=== PATIENT | male | born 1960 | race Caucasian/White ===

== ENCOUNTER 2023-02-23 06:56 | Outpatient (OUT) | payer OTHER, SELFPAY ==
[2023-02-23 07:22] LABS: Basophils Absolute Auto 0.1 10^3/uL (0.0-0.1); Basophils Percent Auto 1.3 % (0.2-2.0); Eosinophils Absolute Auto 0.5 10^3/uL (0.0-0.7); Eosinophils Percent Auto 7.2 % (0.9-7.0); Hematocrit 42.1 % (42.0-54.0); Hemoglobin 14.5 g/dL (14.0-18.0); Immature Granulocytes Abs Auto 0.03 10^3/uL (0.00-0.03); Immature Granulocytes Pct Auto 0.4 % (0.0-0.5); Lymphocytes Absolute Auto 1.7 10^3/uL (1.2-3.8); Lymphocytes Percent Auto 24.6 % (20.5-60.0); Mean Corpuscular HGB Conc 34.4 g/dL (29.9-35.2); Mean Corpuscular Hemoglobin 32.4 pg (25.9-34.0); Mean Platelet Volume 9.6 fL (9.5-13.5); Monocytes Absolute Auto 0.5 10^3/uL (0.3-0.8); Monocytes Percent Auto 6.6 % (1.7-12.0); Neutrophils Absolute Auto 4.2 10^3/uL (1.4-6.5); Neutrophils Percent Auto 59.9 % (43.0-75.0); Platelet Count 188 10^3/uL (150-450); Red Blood Count 4.48 10^6/uL (4.70-6.10); Red Cell Distribution Width 12.7 % (11.0-15.0)
[2023-02-23 07:30] LABS: Estimated Average Glucose 134 mg/dL; Glycohemoglobin A1C 6.3 % (4.5-6.2)
[2023-02-23 08:16] LABS: Alanine Aminotransferase 36 U/L (16-63); Albumin Globulin Ratio 1.1; Albumin Level 3.6 g/dL (3.4-5.0); Alkaline Phosphatase 66 U/L (46-116); Aspartate Amino Transferase 21 U/L (15-37); BUN Creatinine Ratio 13.4; Bilirubin Total 0.7 mg/dL (0.2-1.0); Calcium 8.8 mg/dL (8.5-10.1); Carbon Dioxide 29.9 mmol/L (21.0-32.0); Chloride 104 mmol/L (98-107); Chol HDL Ratio 4.9; Cholesterol 187 mg/dL (<=200); Estimated GFR (African America >60 (>=60); Estimated GFR (Non-African Ame >60 (>=60); Free T3 2.83 pg/mL (2.18-3.98); Globulin 3.4 g/dL; Glucose 156 mg/dL (74-106); HDL Cholesterol 38 mg/dL (40-60); Potassium 4.9 mmol/L (3.5-5.1); Sodium 141 mmol/L (136-145); Thyroid Stimulating Hormone 1.166 uIU/mL (0.358-3.740); Triglycerides 157 mg/dL (<=150); VLDL CHOLESTEROL 31.4 mg/dL
[2023-02-23 08:21] LABS: Prostate Specific Antigen Scrn 0.65 ng/mL (<=4.00)
== END 2023-02-23 06:57 | disposition home or self-care (01) ==
LOC: LAB 07:00
PROVIDERS: PCP Family Medicine; Visit Provider Family Medicine
DX: E78.01 Familial hypercholesterolemia (principal); Z79.899 Other long term (current) drug therapy; R53.83 Other fatigue; Z00.00 Encounter for general adult medical examination without abnormal findings; Z12.5 Encounter for screening for malignant neoplasm of prostate
CPT/HCPCS: 36415; 80053; 80061; 83036; 84436; 84443; 84481; 85025; G0103

== ENCOUNTER 2024-10-24 07:07 | Outpatient (OUT) | payer SELFPAY ==
--- OUTSIDE RECORDS SUMMARY | 2024-06-15 09:51 | XMS_ITS ---
Author Organization [facility] in [place] Address [address] [place] [address] Care Team Providers Care Brass Pickler Name Role Phone Selam Marcos Primary Care Provider [phone] REASON FOR VISIT rf lisinopril Medications Medication SIG (Take, Route, Fr equency, Duration) Notes Start Date End Date Status Lisinopril 10 MG TAKE 1 TABLET BY MADHURI TH EVERY DAY for 90 Active Encounters Encounter Location Date Provider Diagnosis [facility] [address] [place] [address] 06/15/2024 Marcos Selam Plan Of Treatment Medication Medication Name Sig Start Date Stop Date Notes Lisinopril 10 MG TAKE 1 TABLET BY MOUTH EVERY DAY for 90 Progress Notes * Nik PETE ADOB:1960 (63 yo M)Acc No.[id number]:06/15/2024 Patient: Nik SPARROW :1960 A ge:63 Y S ex:Male Address:[address] [place] [id number] * Refills Refill Lisinopril Tablet, 10 MG, 90 Tablet, TAKE 1 TABLET BY MOUTH EVERY DAY, 90, Refills=3 * true * Date: Generated for Alvarez riggs/Tyler/eTransmitting on: 0 10/24/2024 07:11 AM EDT
--- OUTSIDE RECORDS SUMMARY | 2024-07-04 10:00 | XMS_ITS | Encounter Summary ---
Author Name [facility] [place] [facility] [place] Address [address] [place] [address] Care Team Providers Care Plastic Parts Fabricator Trimmer Name Role Phone DIMA CEBALLOS Primary Care Provider Unavailabl e Insurance Providers: All historical and current Section Date Range: From patient's date of to the date document was created. This section includes the names of all active insurance providers for the patient. Insurance Provider Type of Coverage Plan Name Start of Policy Coverage End of Policy Coverage Group Number Member ID Insurance Provider's Telephone Number Policy Welch's Name Patient's Relationship to Policy Welch ANTHEM PREFERRED PROVIDER ORGANIZAT ION (PPO) [employer] Mar 16, 2023 [id number] NEFTALI MORENO PATIENT PROACT RX PRESCRIPT ION KALMB ACH FEEDS Mar 16, 2023 ARIS [id number] [phone] NEFTALI MORENO PATIENT Selected Encounter This section includes the information on record at [place] for the Encounter. Date/Time Encounter Type Encounter Description Reason Provider Source Jul 04, 2024 02:00 PM OFFICE O/P NEW MOD 45 MIN PRIMARY CARE/MEDICINE ICD-10-CM M79.673 Pain in unspecified foot DIMA CEBALLOS Jeanette Encounter Template Text not used by [place] Assessments - Encounter Diagnoses This section includes the primary and secondary diagnoses documented for the Encounter. Date/Time Primary/Secondary Diagnosis Diagnosis Name Provider Source Jul 04, 2024 04:13 PM PRIMARY Pain in unspecified foot [facility] Jul 04, 2024 04:13 PM SECONDARY Contact with and exposure to other hazardous substances [facility] Jul 04, 2024 04:13 PM SECONDARY Sensorineural hearing loss, bilateral [facility] Jul 04, 2024 04:13 PM SECONDARY Tinnitus, bilateral DIMA CEBALLOS CBO [facility] Plan of Treatment: Future Appointments (+ 6 months) and Future Tests (+/- 45 days) The Plan of Treatment section includes future care activities for the patient [facility] [place] [facility] This section includes future appointments and future orders which are active, pending or scheduled. Future Appointments This section includes appointments that were scheduled to occur 6 months from the date of the Encounter, up to a maximum of 20 appointments. The data comes from all [place] treatment facilities. Appointment Date/Time Appointment Type Appointme nt Facility Name July 28, 2024 02:30 PM AMBULATORY - SURGERY [facility] August 09, 2024 02:30 PM AMBULATORY - SURGERY [facility] Active, Pending, and Scheduled Orders This section includes a listing of several types of active, pending, and scheduled orders, including clinic medications orders, diagnostic test orders, procedure orders and consult orders; where the start date of the order is 45 days before the date of the Encounter or 45 days after the date of theEncounter. The data comes from all [place] treatment facilities. Test Date/Time Test Type Test Details Facility Name Jul 04, 2024 03:08 PM Consult Order S PODIATRY OUTPT Cons Bundle Tier And Labeler's Choice [facility] Social History: Smoking Status (Most current) and Tobacco Use (All prior to encounter date) This section includes the most current, and the historical, smoking and tobacco- related health factors from the [place] facility where the Encounter took place. Current Smoking Status This section includes the most current smoking, or tobacco-related health factor, from the [place] facility where the Encounter took place. Date/Time Current Smoking Status Kamar valdez Jul 04, 2024 02:00 PM VA-TOBACCO USE FORMER CIGARETTES [facility] Tobacco Use History This section includes a history of the smoking, or tobacco-related health factors, that were collected on or before the date of the Encounter. The data comes from the [place] facility where the Encounter took place. Date/Time Smoking Status/Tobacco Use Comment F acility Jul 04, 2024 02:00 PM VA-TOBACCO USE FORMER CIGARETTES [facility] Encounter Notes: All associated encounter notes This section contains the clinical notes associated to the Encounter. Date/Time Encounter Note(s) Provider Source Jul 04, 2024 03:16 PM NURSING MEDICATION MGT NOTE: LOCAL TITLE: MEDICATION ADMINISTRATION NOTE (T) STANDARD TITLE: NURSING MEDICATION MGT NOTE DATE OF NOTE: JUL 04, 2024@15:16 ENTRY DATE: JUL 04, 2024@15:17:08 AUTHOR: DAKSHA FRIEND EXP COSIGNER: URGENCY: STATUS: COMPLETED COVID-19 Vaccine [facility] [employer] Patient received prior dose of [employer] COVID-19 vaccine. Documented: COVID-19 (ADP), VECTOR-NR, RS-AD26, PF, 0.5 ML Historical Date Administered: Sep 21, 2020 Series: Series 1 Drama Therapist: ADP Lot: [id number] Exp Date: Unknown Outside Location: [facility] Information Source: FROM PATIENT'S WRITTEN RECORD Comment: Covid-19 Vaccination Record Card /jumana/ DAKSHA FRIEND LICENSED PRACTICAL NURSE Signed: 07/04/2024 15:23 DAKSHA FRIEND [facility] Jul 04, 2024 02:36 PM INTERNAL MEDICINE OUTPATIENT NOTE: LOCAL TITLE: PRIMARY CARE OUTPATIENT NOTE (T) STANDARD TITLE: INTERNAL MEDICINE OUTPATIENT NOTE DATE OF NOTE: JUL 04, 2024@14:36 ENTRY DATE: JUL 04, 2024@14:36:24 AUTHOR: DIMA CEBALLOS EXP COSIGNER: URGENCY: STATUS: COMPLETED In-person Note 63yo Reason for Visit: 63 y/o male here to establish with the [place]. States he is [place] for hearing loss. has some other things he would like to discuss. Sees Dr. Doss as PCP. PAST MEDICAL HISTORY: Medical: hearing loss, tinnitus, HTN, foot and knee pain. prediabetes. Surgical: wisdom teeth. Psychiatric: denies FAMILY HISTORY: mother age 86 - old age father age 72 - CVA (intraoperative) and 10yr later. Cancers: sister - unknown Diabetes: denies Hypertension: denies Coronary Disease: denies Stroke: father. SOCIAL HISTORY: History: [place] [phone]. Occupational/Education: parts counter sales. Works at [email or web address] in [place]. High School Diploma. Tobacco History / Current Use: reformed smoker quit > 15 years ago. smoked maybe 2 pks per week. smoked about 15 years. Alcohol History / Current Use: occas ETOH use. Denies Marijuana use. Illicit Substance Use History / Current Use: Denies Family/Living Situation: . 3 children. Lives with his ex- and oldest son (age 43). REVIEW OF SYSTEMS: foot pain and knee pain. hearing loss ringing in ears. nocturia x3 sees dermatology annually d/t multiple freckles PATIENT ALLERGIES DETAILED ALLERGIES/ADVERSE REACTIONS No Known Allergies AMRS - MEDS (REC SUCCINCT) Active and Recently Inpatient, Outpatient and Clinic Medications (including Supplies): No Medications Found PHYSICAL EXAM: Vital Signs: T: P: 72 (07/04/2024 14:02) R: 16 (07/04/2024 14:02) BP: 118/68 (07/04/2024 14:02) Pain: 5 (07/04/2024 14:02) Height: 71 in [180.3 cm] (07/04/2024 14:02) Weight: 223.1 lb [101.20 kg] (07/04/2024 14:02) Pulse Ox: HEENT: normocephalic, atraumatic. EOMI. TYREE. EAC's patent. TM's unremarkable. Oral mucosa pink and moist. Tongue midline without fasciculations. Throat without erythema or exudate. No oral lesions noted. NECK supple no bruits. LUNGS: clear to auscultation HEART: RRR, No murmurs. No S3, S4, rubs, clicks EXTREMITIES: Pulses intact. No cyanosis. No edema. NEURO: Grossly intact. No motor or sensory deficits noted. SKIN: No lesions noted. ASSESSMENT/PLAN: hearing loss and tinnitus - discussed audiology with pt. He denies needs at present. given contact information if he wishes to scheduled foot pain - consult podiatry. Pt requests to see optometry. plan f/u annually and prn. labs prior. call if questions or needs arise. HEALTH MAINTENANCE/CLINICAL REMINDERS: Clinical Reminders Activity Avg Risk Colorectal Cancer Screen: AVERAGE RISK colorectal cancer screening is due based on information available to this clinical reminder CRC screen completed elsewhere and waiting for results. Results expected: Colonoscopy Comment: [facility] Toxic Exposure Screening Follow-Up: Exposure Concern(s): 07/04/2024 Other Environmental Concerns - Toxic Exposure Concern Asbestos Exposure - Toxic Exposure Concern Other exposures: Jet engine loud noise exposure Follow-up Question(s): 07/04/2024 No Questions - Toxic Exposure Concern declines further assistance at this time. MEDICATION RECONCILIATION Medication Reconciliation report reviewed and discussed with patient/caregiver. VA prescription medications, non-VA prescription medications, OTC and herbal medications reviewed: Patient/caregiver verifies that the list is complete and accurate and voices understanding. FOLLOW-UP: recheck annually and prn. I am the Attending Physician. TOTAL TIME SPENT: Spent 46 minutes in care of this patient today including review of records, exam, and placing orders. /jumana/ DIMA CEBALLOS PHYSICIAN Signed: 07/04/2024 16:13 [facility] CEBALLOS [facility] Jul 04, 2024 02:01 PM PRIMARY CARE NURSI BRANDON NOTE: LOCAL TITLE: OUTPATIENT NURSING INTAKE NOTE (T) STANDARD TITLE: PRIMARY CARE NURSING NOTE DATE OF NOTE: JUL 04, 2024@14:01 ENTRY DATE: JUL 04, 2024@14:01:11 AUTHOR: DAKSHA FRIEND COSIGNER: URGENCY: STATUS: COMPLETED Hemoglobin A1C Results: No Hemoglobin A1C Results Review Allergies Allergies reviewed and updated per protocol. ALLERGIES/ADVERSE REACTIONS No Allergy Assessment Pulse reading was documented at this visit. 72 Respiration reading was documented at this visit. 16 New blood pressure reading was documented at this visit. 118/68 Pain scale was documented at this visit. 5 A new weight was documented at this visit. 223.1 lb (101.4 kg) A new height was documented at this visit. 71 in [180.3 cm) Click here to document a new pulse ox. 97 Have you fallen in the last 30 days? NO MEDICATION LIST REVIEW REPORT Patient states not taking any OTC/Herbals at this visit. 1. Has the patient been feeling sad or distressed? No 2. Has the patient been having personal or family problems? No 3. Has the patient been experiencing worry and/or stress? Yes. Name of PCP notified for follow-up/disposition: Dr. Ceballos 4. Has the patient been having problems with drugs and/or alcohol? No 5. Crisis Line pocket card was provided to patient. Yes Whole Health MAP ('s [place], Aspiration and Purpose) What matters most to you? Comment: My health Clinical Reminders Activity Advance Directive Education Screen: Patient received information regarding Advance Directives: Yes - Patient has been given information/education regarding Advance Directives. Patient advised to follow up with Social Work Service. Level of Understanding: Good Alcohol Use Screen (AUDIT-C): Alcohol Screen: SCREEN FOR ALCOHOL (AUDIT-C) An alcohol screening test (AUDIT-C) was negative (score=3). 1. How often did you have a drink containing alcohol in the past year? Consider a drink to be a 12 ounce can or bottle of regular beer, 8 ounces of malt liquor, a 5 ounce glass of table wine, or a 1.5 ounce shot of liquor (like scotch, gin, or vodka). Two to four times a month 2. How many drinks containing alcohol did you have on a typical day when you were drinking in the past year? Three or four drinks 3. How often did you have six or more drinks on one occasion in the past year? Never BMI Screening: At this visit, the health risks of obesity were reviewed and discussed with the patient, and the benefits of a weight management treatment program, such as [facility]! was discussed and offered to the patient. Patient declines referral. After discussing the health risks of obesity and offering a referral to [facility] or another weight loss program outside the [facility], the patient DECLINES REFERRAL to [facility] or other weight loss program at this time. COVID-19 Immunization: Refused Pfizer Monovalent COVID-19 vaccine Immunization: COVID-19 (PFIZER), MRNA, LNP-S, PF, BENA-SUCROSE, 30 MCG/0.3 ML (AGES 12+ YEARS) Refusal Reason: PATIENT DECISION Patient refuses all immunization(s) in the COVID-19 group Date Documented: 07/04/24 14:16 Depression Screening: Perform PHQ-2 A PHQ-2 screen was performed. The score was 0 which is a negative screen for depression. Over the past two weeks, how often have you been bothered by the following problems? 1. Little interest or pleasure in doing things Not at all 2. Feeling down, depressed, or hopeless Not at all Herpes Zoster (Shingles) Vaccine: The patient declines to receive the recommended dose of zoster (shingles) vaccine. Immunization: ZOSTER RECOMBINANT Refusal Reason: PATIENT DECISION Patient refuses all immunization(s) in the ZOSTER group Date Documented: 07/04/24 14:17 Homelessness/Food Insecurity Screen: In the past 2 months, have you been living in stable housing that you own, rent, or stay in as part of a household? Yes - Living in stable housing. Are you worried or concerned that in the next 2 months you may NOT have stable housing that you own, rent, or stay in as part of a household? No - Not worried about housing near future The reports the following: Within the past 12 months, you worried whether your food would run out before you got money to buy more. Never true Within the past 12 months, the food you bought just didn't last and you didn't have money to get more. Never true Influenza Immunization: Deferral / Refusal The patient declines to receive the recommended dose of seasonal influenza vaccine. Immunization: INFLUENZA, UNSPECIFIED FORMULATION Refusal Reason: PATIENT DECISION Patient refuses all immunization(s) in the FLU group Date Documented: 07/04/24 14:18 Learning Assessment: LEARNING NEEDS ASSESSMENT: I. Learning Preference: Written (in [place] de[place]ni' language) II. Barriers to Learning: No Barriers to Learning III. Social Influences Related to Educational Needs: No social barriers to learning IV. Readiness to Learn: Patient Appears ready to learn. MST Screening: Patient denies experiencing sexual trauma (MST). PTSD Screening: PC-PTSD-5 A PTSD screening test (PC-PTSD-5) was negative (score=0). IN THE PAST MONTH, have you ever had any experience that was so frightening, horrible or traumatic. For example: A serious accident or fire a physical or sexual assault or abuse An earthquake or flood A war Seeing someone be killed or seriously injured Having a loved one through homicide or suicide 1. Have you ever experienced this kind of event? NO 2. Had nightmares about the event(s) or thought about the event(s) when you did not want to? Response not required due to responses to other questions. 3. Tried hard not to think about the event(s) or went out of your way to avoid situations that reminded you of the event(s)? Response not required due to responses to other questions. 4. Been constantly on guard, watchful, or easily startled? Response not required due to responses to other questions. 5. [place] numb or detached from people, activities, or your surroundings? Response not required due to responses to other questions. 6. [place] guilty or unable to stop blaming yourself or others for the event(s) or any problems the event(s) may have caused? Response not required due to responses to other questions. Suicide Screen: C-SSRS Screening [place] Suicide Severity Rating Scale (C-SSRS) screener 1. Over the past month, have you wished you were or wished you could go to sleep and not wake up? No 2. Over the past month, have you had any actual thoughts of killing yourself? No 3. Over the past month, have you been thinking about how you might do this? Response not required due to responses to other questions. 4. Over the past month, have you had these thoughts and had some intention of acting on them? Response not required due to responses to other questions. 5. Over the past month, have you started to work out or worked out the details of how to kill yourself? Response not required due to responses to other questions. 6. If yes, at any time in the past month did you intend to carry out this plan? Response not required due to responses to other questions. 7. In your lifetime, have you ever done anything, started to do anything, or prepared to do anything to end your life (for example, collected pills, obtained a gun, gave away valuables, went to the roof but didn't jump)? No 8. If YES, was this within the past 3 months? Response not required due to responses to other questions. Tdap Immunization: The patient declines to receive the recommended dose of Tdap vaccine. Immunization: TDAP Refusal Reason: PATIENT DECISION Patient refuses all immunization(s) in the TDAP group Date Documented: 07/04/24 14:20 Tobacco Use Screening: The patient is a former cigarette smoker. Quit smoking GREATER THAN OR EQUAL to 15 years. The patient has never used other types of tobacco. Toxic Exposure Screening: The /caregiver was asked if they believe the [place] experienced any toxic exposure(s), such as Airborne Hazards and Open Burn [place], [place] War related exposures, Agent [place], Radiation, contaminated water at [place] or other such exposures, while serving in the Armed Forces. [place]/caregiver believes the [place] was exposed to the following while serving in the Armed Forces: Asbestos: [place]/caregiver was made aware of educational resources and printed information was offered and provided if desired. Other exposures: Comment: Jet engine loud noise exposure /caregiver was made aware of educational resources and printed information was offered and provided if desired. No questions at this time [place]/caregiver was informed of local points of contact. Contact information for local resources: Presumptive Condition(s): Ramila Jenkins, Environmental Health Clinician, ext. [phone] Benefits/Claims: Angelika Erickson, Legal Admin Specialist, ext. [phone] [facility] Enrollment: Nikhil Verdin, Tissue Technician. ext. [phone] Registry: Ramila Jenkins, Environmental Health Clinician, ext. [phone] Toxic Exposure Screening Follow-Up reminder is needed. Name of person notified: Dr. Ceballos /jumana/ DAKSHA FRIEND LICENSED PRACTICAL NURSE Signed: 07/04/2024 14:26 DAKSHA FRIEND [facility]
--- OUTSIDE RECORDS SUMMARY | 2024-07-28 09:15 | XMS_ITS ---
Author Organization [facility] in [place] Address [address] [place] [address] Care Team Providers Care Textile Science Technician Name Role Phone Selam Marcos Primary Care Provider Allergies No Known Allergies Reason For Referral Diagnosis 1 Tinnitus (H93.19) Diagnosis 2 Hearing loss (H91.90 ) Referral Organization [facility] Referring Provider First Name Marcos Referring Provider Last Name Selam Referring Provider Speciality Family [facility] Referred Provider Shasta Oro Referred Provider Specialty Otolaryngolo gy Referral Priority Routine REASON FOR VISIT Has had hearing loss for years- since being out of the service- right one is the one he is concerned about, Went to [place] for hearing test- was told has tinnitis- they wont link his job with the [employer] Softwareloss so wont treat, Had hearing test at [facility] Medications Medication SIG (Take, Route, Fr equency, Duration) Notes Start Date End Date Status Lisinopril 10 MG TAKE 1 TABLET BY MADHURI EVERY DAY for 90 Active Social History Tobacco Use: Social History Observation Description Date Details (start date - stop date) Former Smoker NA - 03/15/2010 Tobacco Use/Smoking Question Answer Notes Patient is a former smoker When did you stop smoking? 03/15/2010 How long has it been since you last smoked? > 10 years Problems Problem Type SNOMED Code ICD Code Onset Dates Problem Status W/U Status Risk Notes Problem Hearing loss (30115268) Hearing loss (H91.90) Active confirmed Problem Tinnitus (44397919) Tinnitus (H93.19) Active confirmed Vital Signs Blood pressure systolic 132 mm Hg 07/29/19 25 Blood pressure diastolic 86 mm Hg 025 Height 73 in 07/28/2024 Weight 222.0 lbs 07/28/2024 BMI 29.29 kg/m2 07/28/2024 Encounters Encounter Location Date Provider Diagnosis [facility] Medicine [address] [place] [address] 07/28/2024 Marcos Pashadanie Benign essential HTN I10 ; Tinnitus H93.19 and Hearing loss H91.90 Assessments Encounter Date Diagnosis (ICD Code) Assessment Notes Treatment Notes Treatment Clinical Notes Section Notes 07/28/2024 Benign essential HTN (ICD-10 - I10) 07/28/2024 Tinnitus (ICD-10 - H93.19) 07/28/2024 Hearing loss (ICD-10 - H91.90) Plan Of Treatment Referrals Referral Date Details 07/28/2024 07/28/2024, Shasta barahona Progress Notes * Julien PETE ADOB:1960 (63 yo M)Acc No.[id number]:07/28/2024 Progress Note Patient: Julien SPARROW Provider: Gale Doss ([facility])MD :1960 A ge:63 Y S ex:Male Date:07/28/2024 Address:[address] [address] [id number] Check In:12:59 PM ESTCheck O ut:01:43 PM EST Subjective: * Chief Complaints: * H as had hearing loss for years- since being out of the service- right one is the one he is concerned aboutWent to [place] for hearing test- was told has tinnitis- they wont link his job with the hearing loss so wont treatHad hearing test at [facility] * HPI: D epression Screening: PHQ-2 (2015 Edition) L ittle interest or pleasure in doing things??Not at all F eeling down, depressed, or hopeless? 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 or since that time. * ROS: E ENT: hearing changes d enies. v isual changes d enies.?non-healing mouth sores d enies. s wollen glands or neck lumps d enies. h oarseness d enies. s ore throat d enies. d ifficulty swallowing d enies. n ose bleeds d enies. n adelina congestion d enies. e ar ache d enies. e ar discharge?denies. r inging in ears d enies. l ight sensitivity d enies. e ye pain d enies. b lurring d enies. e ye irritation d enies. d ouble vision d enies.?vision loss d enies. G eneral/Constitutional: Sweats: D enies. F atigue d enies. S leep problems d enies. A norexia d enies. M alaise d enies. W eight loss d enies.?Fatigue or Weakness d enies. F ever or Chills d enies. C ardiovascular: Shortness of Breath w/lying flat d enies. L ightheadedness/dizziness d enies. C hest tightness/ heavy pressure d enies. S welling of legs, ankles, or feet d enies. W aking up with shortness of breath d enies. C hest pain denies. P alpitations d enies. W eight gain d enies. R espiratory: Chronic or frequent cough d enies. C oughing up blood?denies. D ifficulty breathing d enies. P roductive cough d enies. S noring?denies. S hortness of breath that awakens from sleep (PND) d enies. C hest pain d enies. S putum production d enies. W heezing d enies. M usculoskeletal: Joint pain d enies. J oint Fluid d enies. B ack pain d enies. K nee pain d enies. N moira pain d enies. J oint Stiffness d enies. M uscle cramps d enies. W eakness of muscles d enies. A rthritis d enies. M uscle aches d enies. P ain in shoulder(s) d enies. S wollen joints d enies. 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 M other: . B rother(s): alive. S ister(s): alive. S on(s): alive. D ok(s): alive. 2 brother(s) , 4 sister(s) - healthy. 2 son(s) , 1 daughter(s) - healthy. . * Social History: T obacco Use: T obacco Use/Smoking P atient is a f ormer smoker W hen did you stop smoking? 1 H ow long has it been since you last smoked??> 10 years * Medications: T akingLisinopril 10 MG Tablet TAKE 1 TABLET BY MOUTH EVERY DAY Taking Lisinopril 10 MG Tablet TAKE 1 TABLET BY MOUTH EVERY DAY DiscontinuedSimvastatin 20 MG Tablet Oral Medication List reviewed and reconciled with the patientDiscontinued Simvastatin 20 MG Tablet Oral Medication List reviewed and reconciled with the patient * Allergies: N .K.D.A.no[Allergies Verified] Objective: * Vitals: W t:222.0lbs, Ht: 73 in, BP:132/86mm Hg, BMI:29.29Index, Ht-cm: 185.42 cm, Wt-k.7 kg. * Examination: P hysical Exam: GENERAL: w ell developed, well nourished, in no acute distress. HEAD: n ormocephalic/atraumatic. EYES: p upils equal, round and reactive to light, conjunctivae and sclerae normal. EARS: n o deformity or lesion of external ear, canals and TM appear normal bilaterally, TM's intact, not inflamed with normal light reflex, hearing grossly normal to conversational speech. NOSE: n o deformity, discharge, inflammation, or lesions.? MOUTH: m ucous membranes moist, normal oropharynx and posterior pharynx without lesions or exudates, tongue normal, dentition normal. NECK: n moira supple, no masses or palpable cervical nodes, trachea midline, thyroid without nodules, masses, tenderness, or enlargement. CHEST: n o chest wall deformity, no chest wall tenderness.? LUNGS: n ormal respiratory effort and clear to auscultation, no wheezes, rales, or rhonchi, good air exchange. CARDIO: r egular rate and rhythm, normal S1 and S2, nor murmur, rub, or gallop. PULSES: n ormal capillary refill. ABDOMEN: s oft, non-distended, non-tender, no masses. MUSCULOSKELETAL: n o deformity or scoliosis noted, normal range of motion, joints normal, no erythema, edema, effusion, or ecchymosis. EXTREMITY: n o clubbing, cyanosis, edema, or deformity with normal ROM in both upper and lower bilateral extremities. NEUROLOGIC: g rossly normal. SKIN: n o rashes, ulcerations, or suspicious lesions. LYMPH NODES: n o cervical adenopathy, nodes normal. MENTAL STATUS: a lert and oriented x3, normal mood and affect. Assessment: * Assessment: 1. B enign essential HTN - I10 (Primary) 2 . T innitus - H93.19 ?3. H earing loss - H91.90 Plan: * Treatment: 2. H earing loss Referral To:[facility] Otol[facility] Reason: * Procedure Codes: * Preventive Medicine: Screenings/Counseling: B WI ACTION PLAN Above Normal BMI Follow-up D ietary management education, guidance, and counseling * * Sign off status: Completed Visit Status: C HK (Check Out) true * Provider: Gale Doss (TTC)MD Date: 0 07/28/2024 Generated for Printi ng/Faxing/eTransmitting on: 0 10/24/2024 07:11 AM EDT History and Physical Notes * HPI (History of Present Illness) Category Sub-Category Detail Notes Category Not es Depression Screening PHQ-2 (2015 Edition) Little interest or pleasure in doing things?: Not at all Hearing test shows loss and has hx tinnitus 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 or since that time Feeling down, depressed, or hopeless?: N ot at all Total Score: 0 Examination Category Sub-Category Detail Notes Category Not es Physical Exam GENERAL: well developed, well nourished, in no acute distress HEAD: normocephalic/atraum atic EYES: pupils equal, round and reactive to light, conjunctivae and sclerae normal EARS: no deformity or lesi on of external ear, canals and TM appear normal bilaterally, TM's intact, not inflamed with normal light reflex, hearing grossly normal to conversational speech NOSE: no deformity, discha rge, inflammation, or lesions MOUTH: mucous membranes junior [address], normal oropharynx and posterior pharynx without lesions or exudates, tongue normal, dentition normal NECK: neck supple, no mass es or palpable cervical nodes, trachea midline, thyroid without nodules, masses, tenderness, or enlargement CHEST: no chest wall deform ity, no chest wall tenderness LUNGS: normal respiratory e ffort and clear to auscultation, no wheezes, rales, or rhonchi, good air exchange CARDIO: regular rate and rhy thm, normal S1 and S2, nor murmur, rub, or gallop PULSES: normal capillary ref ill ABDOMEN: soft, non-distended, non-tender, no masses RECTAL: MUSCULOSKELETAL: no deformity or scol iosis noted, normal range of motion, joints normal, no erythema, edema, effusion, or ecchymosis EXTREMITY: no clubbing, cyanosi s, edema, or deformity with normal ROM in both upper and lower bilateral extremities NEUROLOGIC: grossly normal SKIN: no rashes, ulceratio ns, or suspicious lesions LYMPH NODES: no cervical adenopat hy, nodes normal MENTAL STATUS: alert and oriented x 3, normal mood and affect Consultation Request Notes Referral Date Referring Provider Referred Provider Not es 07/28/2024 Marcos Doss Hilary
--- OUTSIDE RECORDS SUMMARY | 2024-07-28 10:30 | XMS_ITS | Encounter Summary ---
Author Name [facility] [place] [facility] [place] [facility] [place] Address [address] [place] [address] Care Team Providers Care Mentally Retarded Teacher Name Role Phone DIMA CEBALLOS Primary Care [...] Welch ANTHEM PREFERRED PROVIDER ORGANIZAT ION (PPO) BRIANNA NE EQUIP MENT CO Mar 16, 2023 [id number] [phone] NEFTALI MORENO PATIENT PROACT RX PRESCRIPT ION KAL[facility] ACH FEEDS Mar 16, 2023 ARIS [id number] [phone] NEFTALI MORENO PATIENT Selected Encounter This section includes the information on record at [place] for the Encounter. Date/Time Encounter Type Encounter Description Reason Provider Source July 28, 2024 02:30 PM OFFICE O/P NEW SF 15 MIN PODIATRY ICD-10-CM G60.0 Hereditary motor and sensory neuropathy ALONDRA DUNN Encounter Template Text not used by VA Assessments - Encounter Diagnoses This section includes the primary and secondary diagnoses documented for the Encounter. Date/Time Primary/Secondary Diagnosis Diagnosis Name Provider Source August 12, 2024 03:58 PM PRIMARY Hereditary motor and sensory neuropathy ALONDRA DUNN [facility] Plan of Treatment: Future Appointments (+ 6 months) and Future Tests (+/- 45 days) The Plan of Treatment section includes future care activities for the patient from all [place] treatmentfacilities. This section includes future appointments and future orders which are active, pending or scheduled. Future Appointments This section includes appointments that were scheduled to occur 6 months from the date of the Encounter, up to a maximum of 20 appointments. The data comes from all [place] treatment facilities. Appointment Date/Time Appointment Type Appointme nt Facility Name August 09, 2024 02:30 PM AMBULATORY - SURGERY [facility] Social History: Smoking Status (Most current) and Tobacco Use (All prior to encounter date) This section includes the most current, and the historical, smoking and tobacco- related health factors from the [place] facility where the Encounter took place. Current Smoking Status This section includes the most current smoking, or tobacco-related health factor, from the [place] facility where the Encounter took place. Date/Time Current Smoking Status Comment Facil ity Jul 04, 2024 02:00 PM VA-TOBACCO USE FORMER CIGARETTES [facility] Tobacco Use History This section includes a history of the smoking, or tobacco-related health factors, that were collected on or before the date of the Encounter. The data comes from the [place] facility where the Encounter took place. Date/Time Smoking Status/Tobacco Use Comment F acility Jul 04, 2024 02:00 PM VA-TOBACCO USE FORMER CIGARETTES [facility] Encounter Notes: All associated encounter notes This section contains the clinical notes associated to the Encounter. Date/Time Encounter Note(s) Provider Source July 28, 2024 02:31 PM PODIATRY NOTE: LOCAL TITLE: PODIATRY CONSULTATION SOAP (C) STANDARD TITLE: PODIATRY NOTE DATE OF NOTE: JULY 28, 2024@14:31 ENTRY DATE: JULY 28, 2024@14:31:09 AUTHOR: NEVILLE DUNN EXP COSIGNER: URGENCY: STATUS: COMPLETED SUBJECTIVE: The patient is a 63 year old MALE. Chief Complaint: b/l foot pain Past Medical History: toes go numb and creeps back further towards his feel. On a real bad day, his feet are numb. Unable to point to the spot which is painful to touch. Pt has lost weight. He purchased new shoes and new inserts. Pt feels best first thing in the morning. Pain has been present for years. He does have some throbbing pain, ice helps. He also uses enzo/tumeric tea with some relief. Pt works on his feet behind [employer] all day x 36 years. Pt has been seen by neurologist 10-15 years ago, denies finding any other. He was told about 1 year ago that he was prediabetic, he has watch his diet, decreased his alcohol intake. Does admit to feeling a knot in his lower back but denies radicular pain PATIENT ALLERGIES DETAILED ALLERGIES/ADVERSE REACTIONS No Known Allergies AMRS - MEDS (REC SUCCINCT) Active and Recently Inpatient, Outpatient and Clinic Medications (including Supplies): Active Non-VA Medications Status ========= 1) Non-VA LISINOPRIL 2.5MG TAB 2.5MG MOUTH EVERY DAY ACTIVE MEDICATION RECONCILIATION MEDICATION RECONCILIATION REPORT reviewed and discussed with patient. VA prescription medications: Patient verifies that they are in receipt of a complete and accurate list of medications. Prescription medications from another source: Patient verifies that they are in receipt of a complete and accurate list of medications. Over the counter medications, vitamins, herbals, and nutritional supplements: Patient verifies that they are in receipt of a complete and accurate list of medications. ALLERGIES: ALLERGIES/ADVERSE REACTIONS No Allergy Assessment Food allergies: None known FOOT RISK LEVEL: DATE TIME HEALTH FACTOR ---- ---- No data available ACTIVE PROBLEM Exposure to potentially hazardous 07/07/2024 substance ([facility] [place] [id number]) OBJECTIVE: Vasc: DP/PT palpable. CFT 3 seconds to the digits. Skin temperature warm to warm from proximal to distal b/l. No edema noted b/l. Neuro: Protective sensation intact to 4/10 sites right, 7/10 sites left as tested with [place] [employer] monofilament. Light touch intact to the hallux bilateral. Negative Tinel's to the tibial nerve bilateral. Derm: Nails 1-5 b/l well-groomed. Webspaces 1-4 b/l clean, dry, and intact. Skin well-hydrated. No open lesions noted or hyperkeratosis Musc: 5/5 muscle strength for all 4 quadrants, pain-free. No pain to palpation of the feet. Negative Jade sign. No pain with digital range of motion. Rigid contracture DIPJ right third toe ASSESSMENT: After reviewing the H&P and clinical findings, Dr. Dunn made the diagnosis of Peripheral neuropathy PLAN: Treatment today consisted of: -Patient examination and evaluation. -Educated patient on proper foot care. -Dispensed 2 pair of power steps the patient. -continue with proper foot care, regular stretching, proper supportive shoe gear. -Consult to neurology -Patient to return to clinic in 1 year RESPONSE TO CARE/RATIONALE FOR CARE: Patient stable, indications for regular follow-up due to loss of protective sensation. /jumana/ NEVILLE DUNN ROLL MECHANIC Signed: 07/28/2024 15:12 NEVILLE DUNN [facility]
--- OUTSIDE RECORDS SUMMARY | 2024-08-09 10:30 | XMS_ITS | Encounter Summary ---
Author Name [facility] Organization [facility] [place] Address [address] [place] [address] Care Team Providers Care Instructional Materials Director Name Role Phone DIMA CEBALLOS Primary Care [...] NE EQUIP MENT [place] Mar 16, 2023 [id number] [phone] NEFTALI MORENO PATIENT PROACT RX PRESCRIPT ION [facility] ACH FEEDS Mar 16, 2023 ARIS [id number] [phone] NEFTALI MORENO PATIENT Selected Encounter This section includes the information on record at [place] for the Encounter. Date/Time Encounter Type Encounter Description Reason Provider Source August 09, 2024 02:30 PM COMPRE OPH EXAM NEW PT 1/> OPTOMETRY ICD-10-CM H52.03 Hypermetropia, bilateral DAKSHA KEYES Encounter Template Text not used by [facility] Assessments - Encounter Diagnoses This section includes the primary and secondary diagnoses documented for the Encounter. Date/Time Primary/Secondary Diagnosis Diagnosis Name Provider Source Aug 17, 2024 04:33 PM PRIMARY Hypermetropia, bilateral WALIDAKSHA DIAZ [facility] Aug 17, 2024 04:33 PM SECONDARY Age-related nuclear cataract, bilateral DAKSHA KEYES [facility] Aug 17, 2024 04:33 PM SECONDARY Presbyopia DAKSHA KEYES [facility] Social History: Smoking Status (Most current) and Tobacco Use (All prior to encounter date) This section includes the most current, and the historical, smoking and tobacco- related health factors from the [place] facility where the Encounter took place. Current Smoking Status This section includes the most current smoking, or tobacco-related health factor, from the [place] facility where the Encounter took place. Date/Time Current Smoking Status Comment Facil ity Jul 04, 2024 02:00 PM VA-TOBACCO USE FORMER CIGARETTES [place] [facility] Tobacco Use History This section includes a history of the smoking, or tobacco-related health factors, that were collected on or before the date of the Encounter. The data comes from the [place] facility where the Encounter took place. Date/Time Smoking Status/Tobacco Use Comment F acility Jul 04, 2024 02:00 PM VA-TOBACCO USE FORMER CIGARETTES [place] [facility] Encounter Notes: All associated encounter notes This section contains the clinical notes associated to the Encounter. Date/Time Encounter Note(s) Provider Source August 09, 2024 02:26 PM OPTOMETRY OUTPATIE NT NOTE: [facility] TITLE: OPTOMETRY OUTPATIENT CLINIC NOTE (T) STANDARD TITLE: OPTOMETRY OUTPATIENT NOTE DATE OF NOTE: AUGUST 09, 2024@14:26 ENTRY DATE: AUGUST 09, 2024@14:26:19 AUTHOR: DAKSHA KEYES EXP COSIGNER: URGENCY: STATUS: COMPLETED OPTOMETRY OUTPATIENT CLINIC NOTE (T) Has ADDENDA 63 yowm here today for AUREA Last Eye exam: 5 years ago Chief Complaint: wants to establish care, thinks he may need specs Ocular History: (-) surgery /trauma Ocular Medications: None Family Ocular History: mother/ ARMD (+) Medical History: Exposure to potentially hazardous substance 07/07/2024 Active Inpatient and Outpatient Medications (excluding Supplies): Non-VA LISINOPRIL 2.5MG TAB 2.5MG MOUTH EVERY DAY Allergy/Reaction: patient states NKA Current Rx: +1.50 wears for reading VA: sRx OD: 20/50 PH: 20/20 OS: 20/60 PH: 20/20 EOMs: FULL OU PUPILS: ERRL -APD OU CF: FULL OU Refraction: OD: +1.00 DS VA: 20/20 OS: +1.25 DS VA: 20/20 ADD: +2.00 Slit Lamp Exam: Lids and lashes: clear OU Conjunctiva: clear OU Cornea: clear OU Anterior chamber: d/q OU Angles: 4 n/t OU Iris: clear, (-) latonya OU Lens: OD: 1 NS OS: 1 NS Obtained informed consent from patient for use of DPA's, educated patient about side effects. 1 gt. Fluress OU, 1 gt. 1.0% [place]. OU, 1 gt. 2.5 % Phenyl. OU @ 2:48 PM Tonometry (A): @ 2:48 PM OD/OS: 18/18 (08/09/24) DFE: C/D: OD: 0.50/0.50 OS: 0.50/0.50 Posterior pole: clear OU Vessels: normal course/caliber OU Vitreous: clear OU Periphery: (-) holes/tears 360 OU Assessment/Plan: 1. Hyperopia and presbyopia OU. Rx released to VA. 2. Nuclear Cat OU - stable. Monitor. 3. Int ocular health clear OU. Monitor 1 year c AUREA. RTC: 1 year AUREA /todd KEYES FUR CUTTER Signed: 08/09/2024 16:52 09/06/2024 ADDENDUM STATUS: COMPLETED Pt requires a weaker add so that he can better use his specs at the int. range. Remake specs with adjusted Rx: OD: +1.00 DS VA: 20/20 OS: +1.25 DS VA: 20/20 ADD: +1.00 /todd KEYES FUR CUTTER Signed: 09/06/2024 17:21 09/07/2024 ADDENDUM STATUS: COMPLETED mail copy of new consult for zuñiga/opt to home address /jumana/ [facility] OPTOMETRY GEAR ROOM KEEPER Signed: 09/07/2024 07:51 /todd KEYES FUR CUTTER Cosigned: 09/07/2024 08:04 DAKSHA KEYES [facility] August 09, 2024 02:25 PM OPTOMETRY NOTE: LOCAL TITLE: OPTOMETRY GEAR ROOM KEEPER NOTE STANDARD TITLE: OPTOMETRY NOTE DATE OF NOTE: AUGUST 09, 2024@14:25 ENTRY DATE: AUGUST 09, 2024@14:26:03 AUTHOR: [place] EXP COSIGNER: DAKSHA KEYES URGENCY: STATUS: COMPLETED 63 Year old vet here today for AUREA Last Eye exam: 5 years Chief Complaint: wants to establish care, thinks he many need specs Ocular History: (-) surgery /trauma Ocular Medications: none Family Ocular History: mother/ ARMD (+) Medical History: Exposure to potentially hazardous substance 07/07/2024 Active Inpatient and Outpatient Medications (excluding Supplies): Non-VA LISINOPRIL 2.5MG TAB 2.5MG MOUTH EVERY DAY Allergy/Reaction: patient states NKA Current Rx: +1.50 wears for reading VA: Rx OD: 20/50 PH: 20/20 OS: 20/60 PH: 20/20 EOMs: FULL OU PUPILS: ERRL -APD OU CF: FULL OU /jumana/ [facility] OPTOMETRY GEAR ROOM KEEPER Signed: 08/09/2024 14:27 /jumana/ DAKSHA EKYES FUR CUTTER Cosigned: 08/09/2024 14:37 [facility]
--- OUTSIDE RECORDS SUMMARY | 2024-10-11 07:41 | XMS_ITS ---
Author Organization [facility] [place] Address [address] [place] [address] Care Team Providers Care Forensic Pathologist Name Role Phone Marcos Doss Primary Care Provider REASON FOR VISIT labs Encounters Encounter Location Date Provider Diagnosis [facility] [address] [facility] [place] [address] 10/11/2024 Marcos Doss Hyperglycemia R73.9 ; Benign essential HTN I10 and Familial hypercholesterolemia E78.01 Assessments Encounter Date Diagnosis (ICD Code) Assessment Notes Treatment Notes Treatment Clinical Notes Section Notes 10/11/2024 Hyperglycemia (ICD-1 0 - R73.9) 10/11/2024 Benign essential HTN (ICD-10 - I10) 10/11/2024 Familial hypercholesterolemia (ICD-10 - E78.01) Plan Of Treatment Pending Test Test Name Order Date COMPREHENSIVE METABOLIC PROFILE WITH GFR 10/11/2024 OCCULT BLOOD, FECAL, IMMUNOASSAY 025 CBC W/AUTO DIFF 10/11/2024 GLYCOHEMOGLOBIN A1C 10/11/2024 THYROID PANEL (T4/TSH/FREE T3) PSA, SCREENING 10/11/2024 Lipid Panel 10/11/2024 Progress Notes * Nik PETE ADOB:1960 (64 yo M)Acc No.[id number]:10/11/2024 Patient: Nik SPARROW :1960 A ge:64 Y S ex:Male Address:[address] [place] [address] Subjective: * Chief Complaints: * L abs * Medical History: * Surgical History: * Hospitalization/Major Diagno stic Procedure: * Medications: Objective: * Vitals: * Physical Examination: Assessment: * Assessment: 1. H yperglycemia - R73.9 (Primary) 2 . B enign essential HTN - I10 ? 3 . F amilial hypercholesterolemia - E78.01 Plan: * Treatment: 2. B enign essential HTN L AB: COMPREHENSIVE METABOLIC PROFILE WITH GFR L AB: OCCULT BLOOD, FECAL, IMMUNOASSAY L AB: CBC W/AUTO DIFF L AB: GLYCOHEMOGLOBIN A1C L AB: THYROID PANEL (T4/TSH/FREE T3) L AB: PSA, SCREENING L AB: Lipid Panel 3. F amilial hypercholesterolemia L AB: COMPREHENSIVE METABOLIC PROFILE WITH GFR L AB: OCCULT BLOOD, FECAL, IMMUNOASSAY L AB: CBC W/AUTO DIFF L AB: GLYCOHEMOGLOBIN A1C L AB: THYROID PANEL (T4/TSH/FREE T3) L AB: PSA, SCREENING L AB: Lipid Panel * Procedure Codes: * true * Date: Generated for Alvarez riggs/Tyler/eTransmitting on: 0 10/24/2024 07:11 AM EDT
--- OUTSIDE RECORDS SUMMARY | 2024-10-24 02:10 | XMS_ITS | Continuity of Care Document ---
Author Name [facility] Organization [facility] Care Team Providers Care Care Professionals Name Role Phone [facility] Unavailable Unavailable Problems Combined list of problems from Department of Defense and Veterans Affairs facilities. It does not include entries that were removed or entered in error. 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 Medication Details Route Status Patient Instructions Prescription Expires Prescription Number Last Dispense Date Ordering Provider Order Date Order Qty Source LISINOPRIL 2.5MG TAB TAKE ONE TABLET BY MOUTH EVERY DAY ORAL ACTIVE FAUSTINO CEBALLOS 2024 [facility] Immunizations Combined list of available immunizations from the Department of Defense and Veterans Affairs facilities. Immunization Series Date Given Administered By Site Reaction Lot Number CVX Code Drug Magnetic Resonance Imaging Coordinator Status Comments Source COVID-19 (ASTRID), VECTOR-NR, [id number], PF, 0.5 ML 1 2020 212 complet ed HISTORICA L INFORMATI ON - FROM PATIENT'S WRITTEN RECORD, Covid-19 Vaccinati on Record Card Lot#: [id number] Mfr: [facility]ID [facility] Vital Signs Combined list of inpatient and outpatient Vital Signs from Department of Defense and Veterans Affairs, ranging from 12 months to all on record, depending upon the facility. Vital Sign Value Date Comments Source SYSTOLIC BLOOD PRESSURE 118 07/04/2024 14:02:00 [facility] DIASTOLIC BLOOD PRESSURE 68 07/04/2024 14:02:00 [facility] WEIGHT 223.1 07/04/2024 14:02:00 [facility] BMI 31 kg/m2 07/04/2024 14:02:00 [facility] PAIN 5 07/04/2024 14:02:00 [facility] HEIGHT 71 07/04/2024 14:02:00 [facility] PULSE 72 07/04/2024 14:02:00 [facility] RESPIRATION 16 07/04/2024 14:02:00 [facility] Encounters Combined list of: 1) Encounters from Department of Veterans Affairs facilities going backup to the last 18 months, not all [place] inpatient encounters are included; 2) Encounters from the Department of [facility] facilities going backup to 280 months. Location Location Details Encounter Type Encounter Number Reason For Visit Attending Provider ADM Date DC Date Status Disposition Source [facility] Outpatient Encounter [id number] 07/04 [facility] [place] En[place] [id number] 07/04 [facility] OFFICE O/P NEW MOD 45 MIN [id number] Diagnos is: ICD-10- CM M79.673 Pain in unspeci fied foot LIN,SAGAR Y L 07/04 [facility] Outpatient Encounter [id number] 07/05 [facility] OFF[facility] O/P NEW SF 15 MIN [id number] Diagnos is: ICD-10- CM G60.0 Heredit konstantin motor and sensory neuropa MARCY Borges 07/28 [facility] COMPRE OPH EXAM NEW PT 1/> [id number] Diagnos is: ICD-10- CM H52.03 Hyperme tropiafranklin DA NIEL 08/09 [facility] Social History Combined list of available smoking, tobacco, and other social history from Department of Defense and Veterans Affairs facilities. Social History Type Response Date Comment Sourc e Tobacco smoking status NHIS VA-TOBACCO USE FORMER CIGARETTES 07/04/2024 [facility] History of tobacco use VA-TOBACCO NEVER USED OTHER TYPE 07/04/2024 [facility] Plan of Care List of future care activities from Department of Veterans Affairs facilities. Additional future care activities may be listed in the Assessment and Plan section. Date/Time Care Activity Care Activity Detail Facili ty 10/18/2024 Laboratory - Chemistry Order OCC ULT BLOOD FIT X1 SCREEN ([facility] ONLY) STOOL FECES SP [facility]
--- OUTSIDE RECORDS SUMMARY | 2024-10-24 07:11 | XMS_ITS | CCD ---
Author Organization [facility] Care Team Providers Care Laser Printing Operator Name Role Phone DR SAEED DOSS Admitting Unavailable DR SAEED DOSS Attending Unavailable DR SAEED DOSS Primary Care Unavailable DR SAEED DOSS Consulting Unavailable Saeed Doss Primary Care Physician Og MORGAN Attending Unavailable Saeed Doss Referring Unavailable Unavailable Primary Care Provider Unavailabl e Allergies Allergy Classification Reported Allergen(s) Allergy Type Date of Onset Reaction(s) Facility (1 source) No Known Medication Allergies; Translations: [No Known Medication Allergies] Propensity to adverse reactions (disorder) [facility] Repository Medications Completed/Discontinued Medications Medication Drug Class(es) Dates Sig (Normalized) Sig (Original) lisinopril 10 mg oral tablet (1 source) Angiotensin Converting Enzyme Inhibitor Start: 10-29-2023 lisinopril 10 mg Tab 10 mg = 1 tab(s), Oral, Daily, 0 Refill(s), Refills(s) 0 Start Date: 10/29/23 Status: Ordered Problems Problem Classification Problem Date Documented Date Episodic/Chronic Disorders of lipid metabolism (1 source) Familial hypercholesterolemia 10-29-2023 Chronic Essential hypertension (1 source) Essential hypertension 10-29-2023 Chronic Other and unspecified benign neoplasm (3 sources) History of polyp of colon; Translations: [Personal history of colonic polyps] Onset: Episodic Other nervous system disorders (1 source) Peripheral nerve disease 10-29-2023 Chronic Other nutritional; endocrine; and metabolic disorders (1 source) Overweight 10-29-2023 Episodic Other nutritional; endocrine; and metabolic disorders (1 source) Overweight in adulthood with body mass index of 25 or more but less than 30 11-18-2023 Episodic Other screening for suspected conditions (not mental disorders or infectious disease) (1 source) Encounter for screening for malignant neoplasm of prostate; Translations: [ENC SCREEN MALIG NEOPLASM PROSTATE] Onset: 2 Episodic Other upper respiratory disease (1 source) Chronic rhinitis 10-29-2023 Chronic Results Test Name Value Interpretation Reference Range Facil ity CBC AUTO DIFFon 01-30-2022 BASO # 0.1 103/ul Normal 0.0-0.1 [facility] Comment on above: Performed By: #### C BC #### [facility] [address] [address] [address] Omar Brown Basophils/100 WBC (Bld) 1.0 % Normal 0.2-2.0 [facility] Comment on above: Performed By: #### C BC #### [facility] [address] [address] [address] Omar Brown EO # 0.4 103/ul Normal 0.0-0.7 [facility] Comment on above: Performed By: #### C BC #### [facility] [address] [address] [address] Omar Brown Eosinophils/100 WBC (Bld) 5.5 % Normal 0.9-7.0 [facility] Comment on above: Performed By: #### C BC #### [facility] [address] [address] [address] Omar Brown Erythrocyte distribution width (RBC) [Ratio] 13.2 % Normal 11.0-15.0 [facility] Comment on above: Performed By: #### C BC #### [facility] [address] [address] [address] Omar Brown Hematocrit (Bld) [Volume fraction] 43.5 % Normal 42.0-54.0 [facility] Comment on above: Performed By: #### C BC #### [facility] [address] [address] [address] Omar Brown Hemoglobin (Bld) [Mass/Vol] 15.2 g/dL Normal 14.0-18.0 [facility] Comment on above: Performed By: #### C BC #### [facility] [address] [address] [address] Omar Brown IG # 0.04 10e3/ul Critically high 0.00-0.03 [facility] Comment on above: Performed By: #### C BC #### [facility] [address] [place] [address] Dr. Omar Brown IG % 0.5 % Normal 0.0-0.5 [facility] Comment on above: Performed By: #### C BC #### [facility] [address] [place] [address] Dr. Omar Brown LYMPH # 1.5 103/ul Normal 1.2-3.8 [facility] Comment on above: Performed By: #### C BC #### [facility] [address] [place] [address] Dr. Omar Brown Lymphocytes/100 WBC (Bld) 20.6 % Normal 20.5-60.0 [facility] Comment on above: Performed By: #### C BC #### [facility] [address] [place] [address] Dr. Omar Brown MANUAL DIFF REQ NO Normal [facility] Comment on above: Performed By: #### C BC #### [facility] [address] [place] [address] Dr. Omar Brown MCH (RBC) [Entitic mass] 32.3 pg Normal 25.9-34.0 [facility] Comment on above: Performed By: #### C BC #### [facility] [address] [place] [address] Dr. Omar Brown MCHC (RBC) [Mass/Vol] 34.9 g/dL Normal 29.9-35.2 [facility] Comment on above: Performed By: #### C BC #### [facility] [address] [place] [address] Dr. Omar Brown MCV (RBC) [Entitic vol] 92.4 fL Normal 80.0-94.0 [facility] Comment on above: Performed By: #### C BC #### [facility] [address] [place] [address] Dr. Omar Brown MONO # 0.4 103/ul Normal 0.3-0.8 [facility] Comment on above: Performed By: #### C BC #### [facility] [address] [address] [address] Omar Brown Monocytes/100 WBC (Bld) 5.9 % Normal 1.7-12.0 [facility] Comment on above: Performed By: #### C BC #### [facility] [address] [address] [address] Omar Brown NEUT # 4.9 103/ul Normal 1.4-6.5 [facility] Comment on above: Performed By: #### C BC #### [facility] [address] [address] [address] Omar Brown Neutrophils/100 WBC (Bld) 66.5 % Normal 43.0-75.0 [facility] Comment on above: Performed By: #### C BC #### [facility] [address] [place] [address] Dr. Omar Brown Platelet mean volume (Bld) [Entitic vol] 9.7 fL Normal 9.5-13.5 [facility] Comment on above: Performed By: #### C BC #### [facility] [address] [place] [address] Dr. Omar Brown PLT 219 103/ul Normal 150-450 [facility] Comment on above: Performed By: #### C BC #### [facility] [address] [place] [address] Dr. Omar Brown RBC 4.71 106/ul Normal 4.70-6.10 [facility] Comment on above: Performed By: #### C BC #### [facility] [address] [place] [address] Dr. Omar Brown WBC 7.3 103/ul Normal 4.0-11.0 [facility] Comment on above: Performed By: #### C BC #### [facility] [address] [place] [address] Dr. Omar Brown GLYCOHEMOGLOBIN A1Con 2021 ADA RECOMMENDATION SEE BELOW Normal [facility] Comment on above: Result Comment: ADA RECOMMENDED LIMIT 4.0 - 6.0 ADA THERAPEUTIC TARGET < 7.0 ACTION SUGGESTED > 7.0 Performed By: #### A 1C #### [facility] [address] [address] [address] Omar Brown Glucose [Mass/Vol] 114 mg/dL Normal [facility] Comment on above: Performed By: #### A 1C #### [facility] [address] [address] [address] Omar Brown HbA1c (Bld) [Mass fraction] 5.6 % Normal 4.5-6.2 [facility] Comment on above: Performed By: #### A 1C #### [facility] [address] [place] [address] Dr. Omar Brown LIPID PROFILEon 01-30-2022 CHOL-HDL RATIO NORM SEE BELOW Normal [facility] Comment on above: Result Comment: 3.3 - 4.4 LOW RISK 4.4 - 7.1 AVERAGE RISK 7.1 - 11.0 MODERATE RISK >11.0 HIGH RISK Performed By: #### C MP, LIPID #### [facility] [address] [place] [address] Dr. Omar Brown Cholesterol [Mass/Vol] 249 mg/dL Critically high <=200 [facility] Comment on above: Performed By: #### C MP, LIPID #### [facility] [address] [place] [address] Dr. Omar Brown Cholesterol in HDL [Mass/Vol] 42 mg/dL Normal 40-60 [facility] Comment on above: Performed By: #### C MP, LIPID #### [facility] [address] [address] [address] Omar rBown Cholesterol in LDL [Mass/Vol] 179.0 mg/dL Normal [facility] Comment on above: Performed By: #### C MP, LIPID #### [facility] [address] [place] [address] Dr. Omar Brown Cholesterol.total/Cho lesterol in HDL [Mass ratio] 5.9 {ratio} Normal [facility] Comment on above: Performed By: #### C MP, LIPID #### [facility] [address] [place] [address] Dr. Omar Brown HDL NORMAL > or = 60 mg/dl - LOW CARDIOVASCULAR RISK <40 mg/dl - HIGH CARDIOVASCULAR RISK Normal [facility] Comment on above: Performed By: #### C MP, LIPID #### [facility] [address] [address] [address] Omar Brown LDL CALC NORMAL SEE BELOW Normal [facility] Comment on above: Result Comment: <100 mg/dl OPTIMAL 100 - 129 mg/dl NEAR OR ABOVE OPTIMAL 130 - 159 mg/dl BORDERLINE HIGH 160 - 189 mg/dl HIGH >190 mg/dl VERY HIGH Performed By: #### C MP, LIPID #### [facility] [address] [address] [address] Omar Brown Triglyceride [Mass/Vol] 140 mg/dL Normal <=150 [facility] Comment on above: Performed By: #### C MP, LIPID #### [facility] [address] [address] [address] Omar Brown VLDL CALC 28.0 mg/dL Normal [facility] Comment on above: Performed By: #### C MP, LIPID #### [facility] [address] [address] [address] Omar Brown PROF 14(COMP METB)on 022 Albumin [Mass/Vol] 3.8 g/dL Normal 3.4-5.0 [facility] Comment on above: Performed By: #### C MP, LIPID #### [facility] [address] [address] [address] Omar Brown Albumin/Globulin [Mass ratio] 1.1 {ratio} Normal [facility] Comment on above: Performed By: #### C MP, LIPID #### [facility] [address] [address] [address] Omar Brown ALP [Catalytic activity/Vol] 65 U/L Normal 46-116 [facility] Comment on above: Performed By: #### C MP, LIPID #### [facility] [address] [address] [address] Omar Brown ALT [Catalytic activity/Vol] 40 U/L Normal 16-63 [facility] Comment on above: Performed By: #### C MP, LIPID #### [facility] [address] [address] [address] Omar Brown Anion gap [Moles/Vol] 10.9 mmol/L Normal [facility] Comment on above: Performed By: #### C MP, LIPID #### [facility] [address] [address] [address] Omar Brown AST [Catalytic activity/Vol] 22 U/L Normal 15-37 [facility] Comment on above: Performed By: #### C MP, LIPID #### [facility] [address] [address] [address] Omar Brown Bilirubin [Mass/Vol] 0.8 mg/dL Normal 0.2-1.0 [facility] Comment on above: Performed By: #### C MP, LIPID #### [facility] [address] [place] [address] Dr. Omar Brown Calcium [Mass/Vol] 9.1 mg/dL Normal 8.5-10.1 [facility] Comment on above: Performed By: #### C MP, LIPID #### [facility] [address] [address] [address] Omar Brown Chloride [Moles/Vol] 103 mmol/L Normal 98-107 [facility] Comment on above: Performed By: #### C MP, LIPID #### [facility] [address] [place] [address] Dr. Omar Brown CO2 [Moles/Vol] 29.7 mmol/L Normal 21.0-32.0 [facility] Comment on above: Performed By: #### C MP, LIPID #### [facility] [address] [address] [address] Omar Brown Creatinine [Mass/Vol] 0.83 mg/dL Normal 0.70-1.30 [facility] Comment on above: Performed By: #### C MP, LIPID #### [facility] [address] [place] [address] Dr. Omar Brown EGFR-AF BHUTANESE >60 Normal >=60 [facility] Comment on above: Performed By: #### C MP, LIPID #### [facility] [address] [address] [address] Omar Brown EGFR-NON AF BHUTANESE >60 Normal >=60 [facility] Comment on above: Performed By: #### C MP, LIPID #### [facility] [address] [address] [address] Omar Brown Globulin (S) [Mass/Vol] 3.4 g/dL Normal [facility] Comment on above: Performed By: #### C MP, LIPID #### [facility] [address] [address] [address] Omar Brown Glucose [Mass/Vol] 132 mg/dL Critically high 74-106 [facility] Comment on above: Performed By: #### C MP, LIPID #### [facility] [address] [place] [address] Dr. Omar Brown Potassium [Moles/Vol] 4.6 mmol/L Normal 3.5-5.1 [facility] Comment on above: Performed By: #### C MP, LIPID #### [facility] [address] [address] [address] Omar Brown Protein [Mass/Vol] 7.2 g/dL Normal 6.4-8.2 [facility] Comment on above: Performed By: #### C MP, LIPID #### [facility] [address] [place] [address] Dr. Omar Brown Sodium [Moles/Vol] 139 mmol/L Normal 136-145 [facility] Comment on above: Performed By: #### C MP, LIPID #### [facility] [address] [address] [address] Omar Brown Urea nitrogen [Mass/Vol] 20.0 mg/dL Critically high 7.0-18.0 [facility] Comment on above: Performed By: #### C MP, LIPID #### [facility] [address] [address] [address] Omar Brown Urea nitrogen/Creatinine [Mass ratio] 24.1 mg/mg Normal [facility] Comment on above: Performed By: #### C MP, LIPID #### [facility] [address] [address] [address] Omar Brown Vital Signs Date Time Vital Sign Value Performing Clinician Lori whyte 11-18-2023 15:36-0400 Blood Pressure Location Og MORGAN [facility] 11-18-2023 15:36-0400 Diastolic blood pressure 76 mm[Hg] Og CHAWLAL [facility] 11-18-2023 15:36-0400 Heart rate 72 /min Og CHAWLAL [facility] 11-18-2023 15:36-0400 Respiratory rate 16 /min Og CHAWLAL [facility] 11-18-2023 15:36-0400 Systolic blood pressure 114 mm[Hg] Og CHAWLAL [facility] Encounters Encounter Date Encounter Type Care Provider Facility Start: 08-10-2024 End: 08-12-2024 Telephone encounter Shasta Oro MD Work Phone: [facility] Comment on above: Referral Review Start: 11-18-2023 End: 11-18-2023 ambulatory Og MORGAN Facility:[facility] Start: 11-18-2023 End: 11-18-2023 Patient encounter procedure Og MORGAN [facility] Start: 02-03-2022 Encounter for genera l adult medical examination without abnormal findings DR SAEED DOSS [facility] Start: 01-30-2022 End: 01-31-[address] SAEED DOSS Facility: Start: 01-30-2022 End: 01-31-2022 Encounter for general adult medical examination without abnormal findings DR SAEED DOSS Facility:[facility] Procedures Date Procedure Procedure Detail Performing Clinician Start: 01-30-[address] GOVIND DOSS Comment on above: Performed By: #### P [facility] #### [facility] [address] [address] [address] Omar Brown Start: 10-27-2018 Radha RAMIREZ Payers Date Payer Category Payer Unknown [id number] 1960 Unknown [id number] 1960 Unknown [id number] 1957 Unknown [id number] Social History Date Type Detail Facility Start: 11-18-2023 Tobacco smoking status Ex-smoker (finding) [facility] Tobacco smoking status Former smokeless tobacco user, quit more than 30 days ago [facility] Sex Assigned At Male [facility] Tobacco smoking status NHIS Tobacco smoking consumption unknown [facility] Start: 1960 Sex assigned at Not on file [facility] Functional Status Date Assessment Result Facility 11-18-2023 Functional Status N/A [facility] Telephone encounter Note 08-12-2024 Telephone Encounter - Nupur Oro - 08/12/2024 12:51 PM EDT Note Date & Type Note Facility 08-12-2024 Telephone encount er Note Left a message on pt's voice mail regarding pt staying with Dr Mccarthy per Dr Oro. [facility] Healthcare Note 08-12-2024 Telephone Encounter - Nupur Oro - 08/12/2024 12:51 PM EDTTelephone Encounter - Shasta Oro MD - 08/12/2024 12:41 PM EDTTelephone Encounter - Lore Altamirano - 08/10/2024 3:42 PM EDT Note Date & Type Note Facility 08-12-2024 Miscellaneous Notes Formattin g of this note might be different from the original. Left a message on pt's voice mail regarding pt staying with Dr Mccarthy per Dr Oro. No Called Pt to schedule for Audio then Murce[place], Pt stated he does not want to see Murcek he would like to see Shorty. Dr. Mccarthy is fine with transferring care to if he want to accept it. documented in this encounter [facility] Telephone encounter Note 08-12-2024 Telephone Encounter - Shasta Oro MD - 08/12/2024 12:41 PM EDT Note Date & Type Note Facility 08-12-2024 Telephone encounter Note No [facility] Work Phone: Telephone encounter Note 08-10-2024 Telephone Encounter - Lore Altamirano - 08/10/2024 3:42 PM EDT Note Date & Type Note Facility 08-10-2024 Telephone encount er Note Called Pt to schedule for Audio then Murcek, Pt stated he does not want to see Murcek he would like to see Shorty. Dr. Mccarthy is fine with transferring care to if he want to accept it. [facility] Clinical Note 11-18-2023 Note Date & Type Note Facility 11-18-2023 Note General Surgery Offi ce/Clinic Note Chief Complaint consultation for colonoscopy HPI Staff 63 year old male presents on consultation from Dr. Doss for surveillance colonoscopy. Last colonoscopy completed 10/2018 with tubular adenoma. Denies abdominal or rectal pain. No rectal bleeding or change in bowel habits. Denies nausea or vomiting. No unexplained weight loss. No known family history of colon cancer. History of Present Illness 63 yo male with h/o htn, hypercholesterolemia; referred for surveillance colonoscopy, last colonoscopy 2018 for rectal bleeding, with removal of 5 mm tubular adenoma from distal sigmoid colon; denies abd pain or blood in stools, no abd complaints; no abd operations; no asa or NSAID use; no tobacco use; no fmhx of GI malignancy or IBD. Review of Systems PHQ Score Initial Depression Screen Score: 0 SCORE ROS - Provider Constitutional: no fever, no sweats, no weight loss. Eyes: no glasses, no blurred vision, no visual loss. ENMT: no dentures, no hoarseness, no swallowing difficulties, no hearing loss, no ear infection(s), no nose bleeds. Cardiovascular: normal blood pressure, no chest pain, regular heartbeat, no heart murmur. Respiratory: no shortness of breath, no cough, no asthma, no wheezing. Gastrointestinal: no nausea, no vomiting, no diarrhea, no constipation, no blood in stool, no change in bowel habits, no abdominal pain, no hepatitis. Genitourinary: no kidney stones, no urine infection, no dysuria. Musculoskeletal: no pain, no weakness. Skin: no changing moles, no rash, no skin lumps. Neurologic: no seizures, no epilepsy, no headache. Psychiatric: no emotional or psychiatric problem. Heme/Lymph: no bleeding problems, no anemia, no blood clots, no transfusions. Allergy/Immunologic: no swollen lymph nodes/glands, no IV drug abuse. Other: Additional ROS info: Except as noted in the above Review of Systems and in the History of Present Illness, all other systems have been reviewed and are negative or noncontributory. Physical Exam Vitals & Measurements HR: 72(Peripheral) RR: 16 BP: 114/76 HT: 73 in HT: 185.4 cm WT: 100 kg WT: 220 lb BMI: 29.09 HEENT: normal conjunctiva, sclera clear, no scleral icterus, EOM intact, PERRLA, oral mucosa moist without lesions. Neck: trachea midline, no mass, symmetric, no thyromegaly or nodules, no adenopathy Respiratory: lungs CTA, respirations non labored. Cardiovascular: regular rate and rhythm, no murmur, no pedal edema or varicosities. Gastrointestinal: soft, non distended, no tenderness, no masses, no palpable hernias, diastasis recti no, no hepatosplenomegaly; normal bs Lymphatic: no cervical adenopathy, no supraclavicular adenopathy. Musculoskeletal: normal gait, digits and nails without infection, nodes, cyanosis, clubbing. Skin: no rashes, no lesions, no ulcers, no subcutaneous nodules, induration. Psychiatric/Neuro: oriented to time, place, person, judgement normal, affect appropriate for age, insight intact, no focal deficits. Tests: review of old records completed , Discussed surgical options, risks, and possible complications with patient. Assessment/Plan 1. Personal history of colonic polyps (Z86.010: Personal history of colonic polyps) plan colonoscopy under anesthesia, informed consent obtained. Follow-up No qualifying data available Problem List/Past Medical History Ongoing BMI 29.0-29.9,adult Chronic rhinitis Essential hypertension Familial hypercholesterolemia History of colon polyps Overweight Peripheral neuropathy Personal history of colonic polyps Historical No qualifying data Procedure/Surgical History Colonoscopy (10/27/2018). Medications lisinopril 10 mg Tab, 10 mg= 1 tab(s), Oral, Daily Allergies No Known Allergies No Known Medication Allergies Social History Alcohol - Denies Alcohol Use, 11/18/2023 Substance Abuse - Denies Substance Abuse, 11/18/2023 Tobacco Former smoker, quit more than 30 days ago Tobacco Use:. Former smokeless tobacco user, quit more than 30 days ago Smokeless Tobacco Use:. Cigarettes, Oral, Started age 18.0 Years. Stopped age 22 Years., 11/18/2023 Family History Family history is negative [facility] Comment on above: Result Comment: Elec tronically Signed By: CATHY RABAGO, Og Aiken\Date and Time Signed: 11/18/23 15:55 EDT Evaluation + Plan note Note Date & Type Note Facility Evaluation + Plan note No data available for this section [facility] Hospital Discharge instructions Note Date & Type Note Facility Hospital Discharge instructions No data available for this section [facility] Progress note Note Date & Type Note Facility Progress note No data available for this section [facility] Summary Purpose Family History No Family History Records Found No data available for this section No Family History Records Found Advance Directives No Advanced Directives Records FoundNo Advanced Directives Records Found Additional Source Comments (unrecognized sect ion and content) No Status Records FoundNo Status Records Found INFORMATION SOURCE (unrecogn ized section and content) DATE CREATED AUTHOR 02/03/2022 [facility] DATE CREATED AUTHOR AUTHOR'S ORGANIZ ATION 11/20/2023 [facility] Patient Care team informatio n (unrecognized section and content) Personnel Name: Saeed Doss MD Address: Address: [address] [place] [address] [place] [address]- Reason for Visit (unrecogniz ed section and content) Reason Onset Date Comments Referral Review 08/10/2024 FOR RECORDS PERTAINING TO PATIENTS WHO ARE OR HAVE BEEN ENROLLED IN A CHEMICAL DEPENDENCY/SUBSTANCEABUSE PROGRAM, SOME INFORMATION MAY BE OMITTED. This clinical summary was aggregated from multiple sources. Caution should be exercised in using it in the provision of clinical care. This summary normalizes information from multiple sources, and as a consequence, information in this document may materially change the coding, format and clinical context of patient data. In addition, data may be omitted in some cases. CLINICAL DECISIONS SHOULD BE BASED ON THE PRIMARY CLINICAL RECORDS. [facility] [employer] [facility]. provides no warranty or guarantee of the accuracy or completeness of information in this document.
--- OUTSIDE RECORDS SUMMARY | 2024-10-24 07:11 | XMS_ITS | Patient Health Record ---
Author Organization [facility] [place] Address [address] [place] [address] Care Team Providers Care General Labor Name Role Phone Marcos Doss Primary Care Provider Allergies No Known Allergies Reason For Referral Diagnosis 1 Tinnitus (H93.19) Diagnosis 2 Hearing loss (H91.90 ) Referral Organization [facility] Referring Provider First Name Marcos Referring Provider Last Name Selam Referring Provider Speciality Family Med [place] Referred Provider [place] Referred Provider Specialty Otolaryngolo gy Referral Priority Routine Medications Medication SIG (Take, Route, Fr equency, Duration) Notes Start Date End Date Status Lisinopril 10 MG TAKE 1 TABLET BY MADHURI TH EVERY DAY for 90 Active Social History Tobacco Use: Social History Observation Description Date Details (start date - stop date) Former Smoker NA - 03/15/2010 Tobacco Use/Smoking Question Answer Notes Patient is a former smoker When did you stop smoking? 03/15/2010 How long has it been since you last smoked? > 10 years Alcohol Screen (Audit-C) Question Answer Notes Did you have a drink contain ing alcohol in the past year? Yes How often did you have 6 or more drinks on one occasion in the past year? Never (0 point) How many drinks did you have on a typical day when you were drinking in the past year? 1 or 2 drinks (0 point) How often did you have a dri nk containing alcohol in the past year? Weekly (3 points) Points 3 Interpretation Negative Problems Problem Type SNOMED Code ICD Code Onset Dates Problem Status W/U Status Risk Notes Problem Chronic rhinitis (60788277) Chronic rhinitis (J31.0) Active confirmed Problem Hyperglycemia (10331710) Hyperglycemia (R73.9) Active confirmed Problem Peripheral neuropath y (041786685) Peripheral neuropathy (G62.9) Active confirmed Problem Essential hypertension (68809873) Benign essential HTN (I10) Active confirmed Problem Hearing loss (77976936) Hearing loss (H91.90) Active confirmed Problem Tinnitus (82172438) Tinnitus (H93.19) Active co nfirmed Problem Well adult (679338473) Well adult (Z00.00) Active confirmed Problem Shoulder joint pain (798243606) Shoulder pain, right (M25.511) Active confirmed Problem Familial hypercholesterolemia (404851565) Familial hypercholesterolemia (E78.01) Active confirmed Vital Signs Blood pressure diastolic 86 mm Hg 07/28/2024 Height 73 in 07/28/2024 Blood pressure systolic 132 mm Hg 07/28/2024 Weight 222.0 lbs 07/28/2024 BMI 29.29 kg/m2 07/28/2024 Encounters Encounter Location Date Provider Diagnosis [address] [address] 06/15/2024 Marcos Hoy Hyperglycemia R73.[address] [address] 06/15/2024 Marcos Hoy [address] [address] 10/11/2024 Marcos Hoy Hyperglycemia R73.9 ; Benign essential HTN I10 and Familial hypercholesterolemia E78.[address] [address] 07/28/2024 Marcos Hoy Benign essential HTN I10 ; Tinnitus H93.19 and Hearing loss H91.90 Assessments Encounter Date Diagnosis (ICD Code) Assessment Notes Treatment Notes Treatment Clinical Notes Section Notes 07/28/2024 Benign essential HTN (ICD-10 - I10) 07/28/2024 Tinnitus (ICD-10 - H93.19) 06/15/2024 Hyperglycemia (ICD-1 0 - R73.9) 10/11/2024 Hyperglycemia (ICD-1 0 - R73.9) 10/11/2024 Benign essential HTN (ICD-10 - I10) 10/11/2024 Familial hypercholesterolemia (ICD-10 - E78.01) 07/28/2024 Hearing loss (ICD-10 - H91.90) Plan Of Treatment Pending Test Test Name Order Date CMP (COMPLETE METABOLIC PANEL) 3 HEMOGLOBIN A1C (GLYCO) 01/28/2023 LIPID PANEL (CHOL/TRIG/HDL/LDL) 01/29/20 23 CBC WITH DIFF 01/28/2023 PSA, PROSTATE-SPECIFIC ANTIGEN 3 COMPREHENSIVE METABOLIC PROFILE WITH GFR 10/11/2024 OCCULT BLOOD, FECAL, IMMUNOASSAY 025 CBC W/AUTO DIFF 10/11/2024 GLYCOHEMOGLOBIN A1C 10/11/2024 GLYCOHEMOGLOBIN A1C 10/15/2023 GLYCOHEMOGLOBIN A1C 06/15/2024 GLYCOHEMOGLOBIN A1C 02/23/2023 PROF CHEM 8 (BAS METB) 02/23/2023 THYROID PANEL (T4/TSH/FREE T3) 3 THYROID PANEL (T4/TSH/FREE T3) 5 PSA, SCREENING 10/11/2024 Lipid Panel 10/11/2024 Insurance Providers Payer Name Payer Address Payer Phone Subscriber Number Group Number Insured Name Patient Relationship to Insured Coverage Start Date Coverage End Date [employer] PPO PLUS LOCAL PLAN [address] [place] [address] [id number] Nik Pete Self - patient is the insured Medical (General) History Medical History History ICD Code Familial hypercholesterolemia E78.01 Chronic rhinitis J31.0 Benign essential HTN I10 Peripheral neuropathy G62.9 Rectal bleeding K62.5
[2024-10-24 07:50] LABS: Hematocrit 42.9 % (42.0-54.0); Hemoglobin 15.4 g/dL (14.0-18.0); Immature Granulocytes Abs Auto 0.03 10^3/uL (0.00-0.03); Immature Granulocytes Pct Auto 0.4 % (0.0-0.5); Lymphocytes Absolute Auto 1.6 10^3/uL (1.2-3.8); Mean Corpuscular HGB Conc 35.9 g/dL (29.9-35.2); Mean Corpuscular Hemoglobin 32.8 pg (25.9-34.0); Mean Corpuscular Volume 91.3 fL (80.0-94.0); Platelet Count 203 10^3/uL (150-450); Red Blood Count 4.70 10^6/uL (4.70-6.10); White Blood Count 6.8 10^3/uL (4.0-11.0)
[2024-10-24 08:29] LABS: Alanine Aminotransferase 38 U/L (16-63); Albumin Globulin Ratio 1.2; Albumin Level 3.8 g/dL (3.4-5.0); Alkaline Phosphatase 63 U/L (46-116); Anion Gap 10.8; Aspartate Amino Transferase 20 U/L (15-37); Blood Urea Nitrogen 18.0 mg/dL (7.0-18.0); Calcium 8.8 mg/dL (8.5-10.1); Carbon Dioxide 29.7 mmol/L (21.0-32.0); Chloride 103 mmol/L (98-107); Cholesterol 218 mg/dL (<=200); Estimated GFR (African America >60 (>=60 mL/min/1.73m^2); Estimated GFR (Non-African Ame >60 (>=60 mL/min/1.73m^2); Free T3 2.78 pg/mL (2.18-3.98); Globulin 3.3 g/dL; Glucose 159 mg/dL (74-106); HDL Cholesterol 38 mg/dL (40-60); Potassium 4.5 mmol/L (3.5-5.1); Sodium 139 mmol/L (136-145); Thyroid Stimulating Hormone 1.070 uIU/mL (0.358-3.740); Total Protein 7.1 g/dL (6.4-8.2); Triglycerides 161 mg/dL (<=150); VLDL CHOLESTEROL 32.2 mg/dL
== END 2024-10-24 07:08 | disposition home or self-care (01) ==
PROVIDERS: PCP Family Medicine; Visit Provider Family Medicine
DX: Z00.00 Encounter for general adult medical examination without abnormal findings (principal); R73.9 Hyperglycemia, unspecified; I10 Essential (primary) hypertension; E78.01 Familial hypercholesterolemia
CPT/HCPCS: 36415; 80053; 80061; 83036; 84436; 84443; 84481; 85025; G0103